=== PATIENT | female | born 1990 | race Caucasian/White ===

== ENCOUNTER 2018-07-01 14:21 | Emergency (ER) | payer BC ==
[~2018-07-01] VITALS: Ht 172.7 cm; Wt 61.0 kg
[2018-07-01 14:28] VITALS: BP 105/76
[2018-07-01 14:57] LABS: BASOPHILS # (AUTO) 0.02 x10^3/uL (0-0.1); BASOPHILS % (AUTO) 0 % (0-1); EOSINOPHILS # (AUTO) 0.08 x10^3/uL (0-0.4); EOSINOPHILS % (AUTO) 1 % (1-7); LYMPHOCYTES # (AUTO) 1.21 x10^3/uL (1-3.4); LYMPHOCYTES % (AUTO) 18 % (22-44); MD NO; MEAN CORPUSCULAR HEMOGLOBIN 26.6 pg (27.0-34.8); MEAN CORPUSCULAR HGB CONC 33.3 g/dL (32.4-35.8); MEAN CORPUSCULAR VOLUME 79.8 fL (80-100); MEAN PLATELET VOLUME 7.7 fL (7.4-10.4); MONOCYTES # (AUTO) 0.37 x10^3/uL (0.2-0.8); MONOCYTES % (AUTO) 5 % (2-9); NEUTROPHILS % (AUTO) 76 % (42-75); PLATELET COUNT 270 x10^3/uL (130-400); RED BLOOD COUNT 5.03 x10^6/uL (3.82-5.3); RED CELL DISTRIBUTION WIDTH 19.1 % (9.6-15.2)
[2018-07-01 15:07] LABS: ALANINE AMINOTRANSFERASE 12 U/L (12-78); ALBUMIN 3.2 g/dL (3.4-5.0); ANION GAP 12 mmol/L (5-15); CALCIUM 8.4 mg/dL (8.5-10.1); CHLORIDE 105 mmol/L (98-107); CREATININE 0.81 mg/dL (0.55-1.02)
[2018-07-01 15:10] LABS: ALKALINE PHOSPHATASE 71 U/L (45-117); BILIRUBIN,TOTAL 0.4 mg/dL (0.2-1.0); TOTAL PROTEIN 7.4 g/dL (6.4-8.2)
[2018-07-01] MEDS ORDERED: ACETAMINOPHEN 500 MG TABLET ONE (15:29)
[2018-07-01] MEDS ORDERED: ACETAMINOPHEN 500 MG TABLET PO ONE (15:30)
== END 2018-07-01 16:12 | disposition home or self-care (01) ==
LOC: ED 16:06
DX: O26.891 Other specified pregnancy related conditions, first trimester (principal); R55 Syncope and collapse; Z3A.08 8 weeks gestation of pregnancy
CPT/HCPCS: 36415; 76801; 80053; 85025; 93005; 99285

== ENCOUNTER 2018-11-08 00:39 | Outpatient (CLI) | payer BC ==
[~2018-11-08] VITALS: Ht 165.1 cm; Wt 70.0 kg
== END 2018-11-08 01:47 | disposition home or self-care (01) ==
LOC: LDOP 00:39
PROVIDERS: ATTEND Obstetrics & Gynecology
DX: O26.893 Other specified pregnancy related conditions, third trimester (principal); Z3A.31 31 weeks gestation of pregnancy; R58 Hemorrhage, not elsewhere classified
CPT/HCPCS: 59025; 99211; G0463

== ENCOUNTER 2019-12-18 10:16 | Emergency (ER) | payer MEDICAID ==
[~2019-12-18] VITALS: Ht 162.6 cm; Wt 61.0 kg
[~2019-12-18 10:16] MED LIST: IBUP-1222 PO
[2019-12-18 10:23] VITALS: BP 129/71
--- NOTE | 2019-12-18 11:13 | NUR ---
PT HAS CO COUGH, SORE THROAT, BODY PAIN AND FEVER. PT STATES HER CHILD HAD STREP, WENT TO URGENT CARE YESTERDAY AND WAS PUT ON ABX, STREP WAS NOT CONFIRMED. PT STATES HER SYMPTOMS WORSENED TODAY. PT NOT IN RESP DISTRESS. PT ALSO HAS CO OF VB, 14 WEEKS . JUST ONE EPISODE OF BLEEDING YESTERDAY.
[2019-12-18 11:37] LABS: RAPID INFLUENZA A Negative (Negative); RAPID INFLUENZA B POSITIVE (Negative)
[2019-12-18 11:38] LABS: BASOPHILS % (AUTO) 0 % (0-1); EOSINOPHILS # (AUTO) 0.01 x10^3/uL (0-0.4); EOSINOPHILS % (AUTO) 0 % (1-7); LYMPHOCYTES # (AUTO) 0.27 x10^3/uL (1-3.4); LYMPHOCYTES % (AUTO) 5 % (22-44); MD NO; MEAN CORPUSCULAR HEMOGLOBIN 28.9 pg (27.0-34.8); MEAN CORPUSCULAR HGB CONC 33.7 g/dL (32.4-35.8); MEAN CORPUSCULAR VOLUME 85.8 fL (80-100); MEAN PLATELET VOLUME 7.4 fL (7.4-10.4); MONOCYTES # (AUTO) 0.26 x10^3/uL (0.2-0.8); MONOCYTES % (AUTO) 5 % (2-9); NEUTROPHILS # (AUTO) 4.84 x10^3/uL (1.8-6.8); NEUTROPHILS % (AUTO) 90 % (42-75); PLATELET COUNT 207 x10^3/uL (130-400); RED BLOOD COUNT 4.32 x10^6/uL (3.82-5.3); RED CELL DISTRIBUTION WIDTH 14.6 % (9.6-15.2)
[2019-12-18 11:49] LABS: ALBUMIN 2.8 g/dL (3.4-5.0); ANION GAP 9 mmol/L (5-15); CHLORIDE 107 mmol/L (98-107); CREATININE 0.66 mg/dL (0.55-1.02)
[2019-12-18] MEDS ORDERED: ACETAMINOPHEN 500 MG TABLET ONE (12:38)
--- NOTE | 2019-12-18 12:57 | NUR ---
MEDICATED TYELENOL. MD AT BEDSIDE DISCUSSING POC. PLAN FOR DC
[2019-12-18] MEDS ORDERED: ACETAMINOPHEN 500 MG TABLET PO ONE (13:00)
== END 2019-12-18 13:06 | disposition home or self-care (01) ==
LOC: ED 12:50
DX: O20.0 Threatened abortion (principal); J10.1 Influenza due to other identified influenza virus with other respiratory manifestations; R11.10 Vomiting, unspecified; R51 Headache; Z3A.15 15 weeks gestation of pregnancy
CPT/HCPCS: 36415; 71045; 76815; 80048; 82040; 85025; 86901; 87400; 93005; 99284

== ENCOUNTER 2019-12-21 20:11 | Emergency (ER) | payer MEDICAID ==
[~2019-12-21] VITALS: Ht 172.7 cm; Wt 60.9 kg
--- NOTE | 2019-12-21 20:34 | NUR ---
PT X15 WEEKS . PT C/O RLQ ABDOMINAL PAIN, INCREASED WITH COUGH. SORE THROAT. COUGH X7 DAYS. DX WITH FLU. ALSO REPORTS FULL BODY RASH. DAUGHTER DX WITH STREP THROAT. PT RESPIRATIONS EVEN AND UNLABORED ON RA. OCCASIONAL DRY COUGH. ERMD IN TO ASSESS PT.
[2019-12-21] MEDS ORDERED: METOCLOPRAMIDE 5 MG/ML, 2ML ONE (20:56)
[2019-12-21] MEDS ORDERED: ACETAMINOPHEN 325 MG TABLET ONE (20:56)
[2019-12-21] MEDS ORDERED: SODIUM CHLORIDE FLUSH 10ML SYR IVF ONE (21:00)
[2019-12-21] MEDS ORDERED: METOCLOPRAMIDE 5 MG/ML, 2ML IVPush ONE (21:00)
[2019-12-21] MEDS ORDERED: SODIUM CHLORIDE 0.9% 1,000ML IVBOLUS ONE (21:00)
[2019-12-21] MEDS ORDERED: ACETAMINOPHEN 325 MG TABLET PO ONE (21:00)
[2019-12-21 21:05] LABS: BASOPHILS # (AUTO) 0.01 x10^3/uL (0-0.1); BASOPHILS % (AUTO) 0 % (0-1); EOSINOPHILS # (AUTO) 0.06 x10^3/uL (0-0.4); EOSINOPHILS % (AUTO) 2 % (1-7); LYMPHOCYTES # (AUTO) 0.79 x10^3/uL (1-3.4); LYMPHOCYTES % (AUTO) 24 % (22-44); MD NO; MEAN CORPUSCULAR HEMOGLOBIN 28.9 pg (27.0-34.8); MEAN CORPUSCULAR HGB CONC 33.7 g/dL (32.4-35.8); MEAN CORPUSCULAR VOLUME 85.7 fL (80-100); MEAN PLATELET VOLUME 7.6 fL (7.4-10.4); MONOCYTES # (AUTO) 0.25 x10^3/uL (0.2-0.8); MONOCYTES % (AUTO) 8 % (2-9); NEUTROPHILS # (AUTO) 2.19 x10^3/uL (1.8-6.8); NEUTROPHILS % (AUTO) 67 % (42-75); PLATELET COUNT 191 x10^3/uL (130-400); RED CELL DISTRIBUTION WIDTH 14.9 % (9.6-15.2)
[2019-12-21 21:14] LABS: ALANINE AMINOTRANSFERASE 10 U/L (12-78); ALBUMIN 2.8 g/dL (3.4-5.0); ANION GAP 9 mmol/L (5-15); CALCIUM 8.4 mg/dL (8.5-10.1); CHLORIDE 105 mmol/L (98-107); CREATININE 0.54 mg/dL (0.55-1.02)
[2019-12-21 21:16] LABS: ALKALINE PHOSPHATASE 70 U/L (45-117); BILIRUBIN,TOTAL 0.4 mg/dL (0.2-1.0); TOTAL PROTEIN 6.9 g/dL (6.4-8.2)
--- NOTE | 2019-12-21 21:29 | NUR ---
REPORT TO GLORIA CLARK.
[2019-12-21 21:59] LABS: CULTURE INDICATED? YES; MICROSCOPIC INDICATED
--- NOTE | 2019-12-21 23:15 | NUR ---
L&D called. they will send a nurse to come and check heart tones per er md andrade
--- NOTE | 2019-12-21 23:26 | NUR ---
L&D nurse found audible FHT between [id number]
--- NOTE | 2019-12-22 00:37 | NUR ---
pt to mri now
[2019-12-22 01:11] VITALS: BP 91/60
== END 2019-12-22 01:49 | disposition home or self-care (01) ==
LOC: ED 21:18
DX: O21.8 Other vomiting complicating pregnancy (principal); O98.512 Other viral diseases complicating pregnancy, second trimester; O99.612 Diseases of the digestive system complicating pregnancy, second trimester; L51.9 Erythema multiforme, unspecified; J10.2 Influenza due to other identified influenza virus with gastrointestinal manifestations; Z3A.15 15 weeks gestation of pregnancy
CPT/HCPCS: 36415; 74181; 80053; 81001; 83605; 84145; 85025; 86592; 87081; 87086; 87880; 96361; 96374; 99284; J2765; J7030

== ENCOUNTER 2021-06-17 20:33 | Emergency (ER) | payer MEDICAID ==
[~2021-06-17] VITALS: Ht 175.3 cm; Wt 59.0 kg
--- NOTE | 2021-06-17 21:02 | NUR ---
FIRST CONTACT: PT HAD A SYNCOPE EPISODE AND HAS HEADACHE. PT IS CRYING IN TRIAGE AND PER PT IT'S BECAUSE HER HEAD HURTS SO BAD, PT SAYS SHE FELL BUT DOESN'T KNOW WHAT SHE HIT. NO OBVIOUS TRAUMA NOTED TO HEAD. PT VOMITING UPON ENTERING ROOM. PT ATTACHED TO MONITORS. VSS.
[2021-06-17] MEDS ORDERED: ONDANSETRON 2MG/ML, 2ML ONE (21:20)
[2021-06-17] MEDS ORDERED: SUMATRIPTAN 6MG/0.5ML SQ ONE ×2 (21:20→21:30)
[2021-06-17] MEDS ORDERED: DIPHENHYDRAMINE 50 MG/ML, 1ML ONE (21:20)
[2021-06-17] MEDS ORDERED: KETOROLAC 30 MG/1 ML ONE (21:20)
[2021-06-17] MEDS ORDERED: PROCHLORPERAZINE 5 MG/ML, 2ML ONE (21:20)
[2021-06-17 21:28] LABS: BASOPHILS % (AUTO) 0 % (0-1); EOSINOPHILS % (AUTO) 1 % (1-7); LYMPHOCYTES % (AUTO) 20 % (22-44); MEAN CORPUSCULAR HEMOGLOBIN 30.2 pg (27.0-34.8); MEAN CORPUSCULAR HGB CONC 33.5 g/dL (32.4-35.8); MEAN PLATELET VOLUME 7.8 fL (7.4-10.4); MONOCYTES % (AUTO) 5 % (2-9); NEUTROPHILS % (AUTO) 74 % (42-75); PLATELET COUNT 333 x10^3/uL (130-400); RED BLOOD COUNT 5.22 x10^6/uL (3.82-5.3); RED CELL DISTRIBUTION WIDTH 13.8 % (9.6-15.2)
[2021-06-17] MEDS ORDERED: SODIUM CHLORIDE FLUSH 10ML SYR IVF ONE (21:30)
[2021-06-17] MEDS ORDERED: MORPHINE SULFATE 4 MG/ML, 1ML IVPush PRN (21:30)
[2021-06-17] MEDS ORDERED: KETOROLAC 30 MG/1 ML IVPush ONE (21:30)
[2021-06-17] MEDS ORDERED: PROCHLORPERAZINE 5 MG/ML, 2ML IVPush ONE (21:30)
[2021-06-17] MEDS ORDERED: ONDANSETRON 2MG/ML, 2ML IVPush ONE (21:30)
[2021-06-17] MEDS ORDERED: DIPHENHYDRAMINE 50 MG/ML, 1ML IVPush ONE (21:30)
[2021-06-17] MEDS ORDERED: SODIUM CHLORIDE 0.9% 1,000ML IVBOLUS ONE (21:30)
--- NOTE | 2021-06-17 21:32 | NUR ---
PT BACK FROM CT.
[2021-06-17 21:36] VITALS: BP 115/89
[2021-06-17 21:38] LABS: ALANINE AMINOTRANSFERASE 17 U/L (12-78); ALBUMIN 3.8 g/dL (3.4-5.0); ANION GAP 7 mmol/L (5-15); CALCIUM 8.5 mg/dL (8.5-10.1); CHLORIDE 106 mmol/L (98-107); CREATININE 0.79 mg/dL (0.55-1.02)
[2021-06-17 21:42] LABS: ALKALINE PHOSPHATASE 65 U/L (45-117); BILIRUBIN,TOTAL 0.3 mg/dL (0.2-1.0); TOTAL PROTEIN 7.5 g/dL (6.4-8.2)
== END 2021-06-17 22:57 | disposition home or self-care (01) ==
LOC: ED 22:51
DX: S06.0X0A Concussion without loss of consciousness, initial encounter (principal); R55 Syncope and collapse; R93.0 Abnormal findings on diagnostic imaging of skull and head, not elsewhere classified; Z91.041 Radiographic dye allergy status; X58.XXXA Exposure to other specified factors, initial encounter; Y93.89 Activity, other specified; Y92.89 Other specified places as the place of occurrence of the external cause; Y99.8 Other external cause status
CPT/HCPCS: 36415; 70450; 80053; 84703; 85025; 93005; 96361; 96372; 96374; 96375; 99285; J0780; J1200; J1885; J2405; J3030; J7030